=== PATIENT | male | born 1985 | race Caucasian/White ===

== ENCOUNTER 2024-09-10 12:54 | Emergency (ER) | payer OTHER, SELFPAY ==
[~2024-09-10] VITALS: Ht 165.1 cm; Wt 74.0 kg
[2024-09-10] MEDS ORDERED: IBUP200C25 PO (13:16)
[2024-09-10] MEDS ORDERED: AMOX500C PO (13:59)
[2024-09-10] MEDS ORDERED: IBUP-1022 PO (13:59)
[2024-09-10 14:17] VITALS: BP 145/84; TEMP 97.8; O2SAT 97
== END 2024-09-10 14:19 | disposition home or self-care (01) ==
LOC: M ED 12:54
DX: K02.9 Dental caries, unspecified (principal); F17.200 Nicotine dependence, unspecified, uncomplicated